=== PATIENT | male | born 1980 | race Caucasian/White ===

== ENCOUNTER 2021-01-08 04:27 | Emergency (ER) | payer SELFPAY ==
[~2021-01-08] VITALS: Ht 190.5 cm; Wt 108.1 kg
[2021-01-08 04:30] VITALS: BP 137/94
--- NOTE | 2021-01-08 04:39 | NUR ---
ERP AT BEDSIDE
--- NOTE | 2021-01-08 04:45 | NUR ---
PT REFUSING TO GET OUT OF BED FOR D/C. PT PROVIDED BLANKET TO TAKE WITH SELF UPON D/C. PT STATES "I CANT GET OUT OF BED, I AM COLD AND I MUST HAVE SOME PROBLEM." PT AMBULATORY WITH STEADY GAIT UPON ARRIVAL TO ED, NO CHANGES AT THIS TIME.
--- NOTE | 2021-01-08 04:52 | NUR ---
Patient given discharge instructions and they have confirmed that they understand the instructions. Patient ambulatory with steady gait. Pt escorted out of ED with security
== END 2021-01-08 04:58 | disposition home or self-care (01) ==
LOC: ED 04:52
DX: Z72.9 Problem related to lifestyle, unspecified (principal); Z59.0 Homelessness; F17.210 Nicotine dependence, cigarettes, uncomplicated
CPT/HCPCS: 99281; 99406